=== PATIENT | male | born 1955 | race Hispanic/Latino ===

== ENCOUNTER 2018-02-10 22:58 | Emergency (ER) | payer OTHER ==
[2018-02-10] MEDS ORDERED: DEXAMETHASONE SOD PHOSPHATE 4 MG/ML 1ML VIAL ONE (23:43)
[2018-02-10] MEDS ORDERED: METHYLPREDNISOLONE SOD SUCC 40MG/ML 1ML ONE (23:44)
[2018-02-10] MEDS ORDERED: ACETAMINOPHEN-CODEINE ELIXIR 5 ML UDCUP ONE (23:44)
== END 2018-02-10 23:59 | disposition home or self-care (01) ==
LOC: EDH 22:58
DX: B34.9 Viral infection, unspecified (principal); J30.9 Allergic rhinitis, unspecified; I10 Essential (primary) hypertension
CPT/HCPCS: 87880; 96372 ×2; 99284; J1100; J2920

== ENCOUNTER 2023-06-15 16:24 | Emergency (ER) | payer MEDICARE, OTHER ==
[~2023-06-15] VITALS: Ht 177.8 cm; Wt 124.7 kg
[2023-06-15 18:26] LABS: BASOPHILS # (AUTO) 0.06 K/uL (0.00-0.20); BASOPHILS % (AUTO) 0.3 % (0.0-5.0); EOSINOPHILS # (AUTO) 0.07 K/uL (0.00-0.70); EOSINOPHILS % (AUTO) 0.4 % (0.0-8.0); HEMATOCRIT 40.5 % (42-54); IMMATURE GRANULOCYTE ABSOLUTE 0.08 K/uL (0-1); LYMPHOCYTES # (AUTO) 1.4 K/uL (1.0-4.8); LYMPHOCYTES % (AUTO) 7.2 % (21.0-51.0); MEAN CORPUSCULAR HGB CONC 33.6 g/dL (32.0-36.0); MEAN CORPUSCULAR VOLUME 86.4 fL (79-99); MONOCYTES # (AUTO) 1.7 K/uL (0.1-1.0); NEUTROPHILS # (AUTO) 15.5 K/uL (1.8-7.7); NEUTROPHILS % (AUTO) 82.7 % (40.0-77.0); PLATELET COUNT (AUTO) 222 K/uL (130-400); RED BLOOD CELL COUNT(AUTO) 4.69 MIL/uL (4.50-6.20); RED CELL DISTRIBUTION WIDTH 13.3 % (11.0-15.5); WHITE BLOOD COUNT (AUTO) 18.8 K/uL (4.8-10.8)
[2023-06-15 18:34] LABS: CREATININE 1.6 mg/dL (0.5-1.5)
[2023-06-15 18:44] LABS: APPEARANCE,URINE CLEAR (CLEAR); BILIRUBIN,URINE NEGATIVE (NEGATIVE); COLOR,URINE LIGHT-YELLOW (YELLOW); GLUCOSE, URINE (UA) NEGATIVE (NEGATIVE); KETONES,URINE NEGATIVE (NEGATIVE); LEUKOCYTE ESTERASE ,URINE NEGATIVE Leu/uL (NEGATIVE); NITRATE,URINE NEGATIVE (NEGATIVE); OCCULT BLOOD,URINE NEGATIVE (NEGATIVE); PROTEIN,URINE NEGATIVE (NEGATIVE); UROBILINOGEN,URINE 0.2 mg/dL (0.2-1.0)
[2023-06-15 18:44] LABS: BILIRUBIN,TOTAL 1.7 mg/dL (0.2-1.0)
[2023-06-15 18:45] LABS: ALBUMIN 3.8 g/dL (3.5-5.0)
[2023-06-15 18:51] LABS: ADD UA MICROSCOPIC NO
[2023-06-15] MEDS ORDERED: IOHEXOL-350 75 ML VIAL IV ONE (20:46)
[2023-06-15] MEDS ORDERED: TAMS-1 PO (22:02)
[2023-06-15] MEDS ORDERED: IBUP-1493 PO (22:02)
[2023-06-15 22:37] VITALS: BP 132/64; PULSE 89; RESP 16; O2SAT 95
== END 2023-06-15 22:50 | disposition home or self-care (01) ==
LOC: EDH 16:24
DX: N13.2 Hydronephrosis with renal and ureteral calculous obstruction (principal); N40.0 Benign prostatic hyperplasia without lower urinary tract symptoms; R10.9 Unspecified abdominal pain; E11.9 Type 2 diabetes mellitus without complications; I10 Essential (primary) hypertension
CPT/HCPCS: 99285; 74177; 71045; 82550; 83874; 84484; 80053; 85025; 81003; 36415; 93005; Q9967